=== PATIENT | male | born 1945 | race Caucasian/White ===

== ENCOUNTER 2023-02-09 17:06 | Emergency (ER) | payer MEDICARE, BC ==
[2023-02-09] MEDS ORDERED: Tenecteplase 50 MG Kit ONE (17:19)
[2023-02-09] MEDS ORDERED: Aspirin 81 MG Tab.Chew PO ONE (17:22)
[2023-02-09] MEDS ORDERED: Sodium Chloride 0.9% 10 ML Syringe FLUSH PRN (17:22)
[2023-02-09] MEDS ORDERED: Clopidogrel 75 MG Tab PO ONE (17:34)
[2023-02-09] MEDS ORDERED: Heparin Sodium 5,000 Units/ML Vial IVPUSH ONE (17:35)
[2023-02-09 17:43] LABS: BASOPHILS ABSOLUTE AUTO 0.01 K/mm3 (0.01-0.08); BASOPHILS PERCENT AUTO 0.1 % (0.1-1.2); EOSINOPHILS ABSOLUTE AUTO 0.04 K/mm3 (0.04-0.54); EOSINOPHILS PERCENT AUTO 0.4 (0.8-7.0); HEMATOCRIT 43.3 % (40.1-51.0); HEMOGLOBIN 14.9 gm/dl (13.7-17.5); IMMATURE GRAN ABSOLUTE AUTO 0.02 K/mm3 (0.00-0.10); IMMATURE GRAN PERCENT AUTO 0.2 % (<=1.0); LYMPHOCYTES ABSOLUTE AUTO 1.96 K/mm3 (1.32-3.57); LYMPHOCYTES PERCENT AUTO 21.1 % (21.8-53.1); MEAN CORPUSCULAR HEMOGLOBIN 29.4 pg (25.7-32.2); MEAN CORPUSCULAR HGB CONC 34.4 g/dl (32.2-35.5); MEAN CORPUSCULAR VOLUME 85.6 fl (79.0-92.2); MEAN PLATELET VOLUME 12.1 fl (9.4-12.3); MONOCYTES ABSOLUTE AUTO 0.67 K/mm3 (0.30-0.82); MONOCYTES PERCENT AUTO 7.2 % (5.3-12.2); NEUTROPHILS ABSOLUTE AUTO 6.58 K/mm3 (1.78-5.38); PLATELET COUNT,PLT 198 K/mm3 (163-337); RED BLOOD CELL COUNT 5.06 M/mm3 (4.63-6.08); WHITE BLOOD CELL COUNT,WBC 9.28 K/mm3 (4.23-9.07)
[2023-02-09] MEDS ORDERED: Heparin Sodium/D5W 25,000 UNITS/500 ML BAG IV SCH (17:45)
[2023-02-09] MEDS ORDERED: Morphine 4 MG/ML Syringe IVPUSH ONE (17:46)
[2023-02-09 18:10] LABS: ALBUMIN 3.7 g/dl (3.4-5.0); ANION GAP 15.8 (5-15); BILIRUBIN TOTAL 0.8 mg/dL (0.2-1.0); BUN/CREATININE RATIO 16.9 (14-18); CALCIUM 10.1 mg/dL (8.5-10.1); CREATININE 1.6 mg/dL (0.7-1.3); EST CRCL DRUG DOSING (CG) 38.66 mL/min; POTASSIUM,K 3.8 mEq/L (3.5-5.1); PROTEIN TOTAL,TP 7.3 g/dl (6.4-8.2)
== END 2023-02-09 18:04 ==
LOC: JD.ED 17:06
DX: I21.29 ST elevation (STEMI) myocardial infarction involving other sites (principal); I10 Essential (primary) hypertension; E11.9 Type 2 diabetes mellitus without complications
CPT/HCPCS: 36415; 80053; 84484; 85025; 93005; 96374; 96375; 96376; 99285; A9270; J1644; J2270; J3101; J3490; 93010